=== PATIENT | female | born 1990 | race African-American/Black ===

== ENCOUNTER 2016-11-17 22:32 | Emergency (ER) | payer SELFPAY ==
[2016-11-17] MEDS ORDERED: MAG HYDROX/AL HYDROX/SIMETH SUSP 30 ML UDCUP PO ONE (23:39)
[2016-11-17] MEDS ORDERED: METOCLOPRAMIDE HCL ORAL SOLN 10 MG/10 ML UDCUP PO ONE (23:39)
[2016-11-17] MEDS ORDERED: LIDOCAINE 2% VISCOUS SOLN 20 ML UDCUP PO ONE (23:39)
--- NOTE | 2016-11-17 23:43 | ER Document Report ---
ED Medical Screen (RME) - General Stated Complaint: CHEST PAIN Notes: 26-year-old female, chief complaint of burning pain in her chest since earlier today, no history of reflux, no injury, denies shortness of breath, pain is in the middle of her chest. Smokes, hx PCOS, denies other hx. no family history of early cardiac disease. No recent travel, no leg swelling, no control use , no family history of blood clots. TRAVEL OUTSIDE OF THE [place] IN LAST 30 DAYS: No - Related Data Allergies/Adverse Reactions: No Known Allergies Allergy (Verified 08/27/13 13:35) Past Medical History - Social History Chew tobacco use (# tins/day): No Frequency of alcohol use: Social Drug Abuse: None Pulmonary Medical History: Reports: Hx Pneumonia Denies: Hx Asthma Endocrine Medical History: Denies: Hx Diabetes Mellitus Type 1 Renal/ Medical History: Denies: Hx Peritoneal Dialysis - Immunizations Hx Diphtheria, Pertussis, Tetanus Vaccination: Yes Physical Exam - Vital signs Vitals: Temp Pulse Resp BP Pulse Ox 98.1 F 106 H 22 H 153/99 H 100 11/17/16 23:23 11/17/16 23:23 11/17/16 23:23 11/17/16 23:23 11/17/16 23:23 - General General appearance: Appears well In distress: None - Cardiovascular Rhythm: Regular. No: Tachycardia Heart sounds: Normal auscultation, S1 appreciated, S2 appreciated Course - Vital Signs Vital signs: Temp Pulse Resp BP Pulse Ox 98.1 F 106 H 22 H 153/99 H 100 11/17/16 23:23 11/17/16 23:23 11/17/16 23:23 11/17/16 23:23 11/17/16 23:23
[2016-11-18 02:26] VITALS: BP 134/79
--- NOTE | 2016-11-18 03:00 | ER Document Report ---
ED General - General Chief Complaint: Chest Pain Stated Complaint: CHEST PAIN Notes: Patient is a 26-year-old female that comes emergency department with chief complaint of burning pain in her chest since earlier today, no history of reflux , no injury, denies shortness of breath, pain is in the middle of her chest. Smokes, hx PCOS, denies other hx. no family history of cardiac disease. No recent travel, no leg swelling, no control use, no family history of blood clots. TRAVEL OUTSIDE OF THE [place] IN LAST 30 DAYS: No - Related Data Allergies/Adverse Reactions: No Known Allergies Allergy (Verified 08/27/13 13:35) Past Medical History - General Information source: Patient - Social History Smoking Status: Current Every Day Smoker Chew tobacco use (# tins/day): No Smoking Education Provided: Yes - <3 min Frequency of alcohol use: Social Drug Abuse: None Lives with: Family Family History: None Patient has suicidal ideation: No Patient has homicidal ideation: No Pulmonary Medical History: Reports: Hx Pneumonia Denies: Hx Asthma Endocrine Medical History: Denies: Hx Diabetes Mellitus Type 1 Renal/ Medical History: Denies: Hx Peritoneal Dialysis Surgical Hx: Negative - Immunizations Hx Diphtheria, Pertussis, Tetanus Vaccination: Yes Review of Systems - Review of Systems Constitutional: No symptoms reported EENT: No symptoms reported Cardiovascular: See HPI Respiratory: See HPI Gastrointestinal: See HPI Genitourinary: No symptoms reported Female Genitourinary: No symptoms reported Musculoskeletal: No symptoms reported Skin: No symptoms reported Hematologic/Lymphatic: No symptoms reported Neurological/Psychological: No symptoms reported Physical Exam - Vital signs Vitals: Temp Pulse Resp BP Pulse Ox 98.1 F 106 H 22 H 153/99 H 100 11/17/16 23:23 11/17/16 23:23 11/17/16 23:23 11/17/16 23:23 11/17/16 23:23 Interpretation: Normal - General General appearance: Alert, Anxious In distress: None - Patient appears nervous but does not appear to be in distress - HEENT Head: Normocephalic, Atraumatic Eyes: Normal Conjunctiva: Normal Extraocular movements intact: Yes Eyelashes: Normal Pupils: PERRL Mucous membranes: Normal Pharynx: Normal Neck: Normal - Respiratory Respiratory status: No respiratory distress Chest status: Nontender Breath sounds: Normal. No: Decreased air movement, Wheezing Chest palpation: Normal - Cardiovascular Rhythm: Regular. No: Tachycardia Heart sounds: Normal auscultation, S1 appreciated, S2 appreciated Murmur: No - Abdominal Inspection: Normal Distension: No distension Bowel sounds: Normal Tenderness: Tender - Patient has mild tenderness in the epigastric area, no guarding, otherwise soft abdomen Organomegaly: No organomegaly - Back Back: Normal, Nontender - Extremities General upper extremity: Normal inspection, Nontender, Normal color, Normal ROM , Normal temperature General lower extremity: Normal inspection, Nontender, Normal color, Normal ROM , Normal temperature, Normal weight bearing. No: Melba's sign - Neurological Neuro grossly intact: Yes Cognition: Normal Orientation: AAOx4 Cicero Coma Scale Eye Opening: Spontaneous Darlin Coma Scale Verbal: Oriented Cicero Coma Scale Motor: Obeys Commands Darlin Coma Scale Total: 15 Speech: Normal Motor strength normal: LUE, RUE, LLE, RLE Sensory: Normal - Psychological Associated symptoms: Normal affect, Normal mood - Skin Skin Temperature: Warm Skin Moisture: Dry Skin Color: Normal Course - Re-evaluation Re-evalutation: Chest x-ray is unremarkable, EKG shows T-wave inversion in lead III, no significant T-waves or ST segment changes. On re-evaluation after GI cocktail patient smiling and states she feels much better, discomfort is gone. Patient still has very mild epigastric tenderness on examination, no significant tenderness or guarding. She tells me that her "heartburn is gone". I did not tell her she had heartburn. Patient with no concerning medical history including diabetes, hypertension, hyperlipidemia. She is obese, however she has no family history of cardiac disease and she is young at the age of 26. Symptoms described as burning and resolved with GI cocktail. Discussed with Dr. Duong, recommendation is for patient to be treated for GERD, follow-up with primary care, and return if she worsens in any way. Patient states satisfaction and agreement with plan. - Vital Signs Vital signs: Temp Pulse Resp BP Pulse Ox 98.1 F 93 19 134/79 H 97 11/17/16 23:23 11/18/16 02:23 11/18/16 02:23 11/18/16 02:23 11/18/16 02:23 Discharge - Discharge Clinical Impression: Chest pain Qualifiers: Chest pain type: unspecified Qualified Code(s): R07.9 - Chest pain, unspecified Condition: Stable Disposition: HOME, SELF-CARE Additional Instructions: Workup and examination indicates a gastrointestinal source of your symptoms. Please take the Prilosec daily as directed, take Tums or Rolaids in addition to this if needed, avoid NSAIDs such as ibuprofen, naproxen, aspirin, avoid high levels of caffeine, avoid smoking or drinking. Follow-up with primary care closely for additional workup and evaluation. Return to emergency department for any concerning or worsening symptoms including returned or worsening pain, shortness of breath, vomiting, etc. Prescriptions: Omeprazole 40 mg PO DAILY #30 capsule.dr Forms: Return to Work
--- NOTE | 2016-11-18 08:22 | EKG REPORT ---
SEVERITY:- ABNORMAL ECG - SINUS RHYTHM NONSPECIFIC T ABNORMALITIES, INFEROLAT LEADS : Confirmed by: Stuart Busch MD 18-Nov-2016 08:21:33
== END 2016-11-18 03:14 | disposition home or self-care (01) ==
LOC: ER 22:32
DX: R07.9 Chest pain, unspecified (principal); F17.200 Nicotine dependence, unspecified, uncomplicated; Z71.6 Tobacco abuse counseling; R10.816 Epigastric abdominal tenderness; E66.9 Obesity, unspecified; Z68.41 Body mass index [BMI] 40.0-44.9, adult
CPT/HCPCS: 93005; 99285; 71020; 93010; J3490

== ENCOUNTER 2017-11-04 09:26 | Emergency (ER) | payer SELFPAY ==
[2017-11-04] MEDS ORDERED: POLYETHYLENE GLYCOL 3350 POWDER 17 GM/1 PACKET PO ONE (10:17)
[2017-11-04] MEDS ORDERED: DOCUSATE SODIUM 100 MG CAPSULE PO ONE (10:17)
--- NOTE | 2017-11-04 10:22 | ER Document Report ---
ED GI Bleed / Rectal Pain - General Chief Complaint: Hemorrhoids Stated Complaint: Hemorrhoid Time Seen by Provider: 11/04/17 10:17 Mode of Arrival: Ambulatory Information source: Patient Notes: Patient is a 27-year-old female who presents to the ER today for a bump between her vagina and her rectum 6 days. Patient states that she has been constipated for about a week and has been trying to have a bowel movement by straining but is unable to have a bowel movement. Patient states that she has no history of hemorrhoids but looked in the mirror and thinks that she does have one. She states it is very tender. She denies any drainage, bleeding TRAVEL OUTSIDE OF THE [place] IN LAST 30 DAYS: No - Related Data Allergies/Adverse Reactions: No Known Allergies Allergy (Verified 08/27/13 13:35) Past Medical History - General Information source: Patient - Social History Smoking Status: Unknown if Ever Smoked Family History: None Pulmonary Medical History: Reports: Hx Pneumonia Denies: Hx Asthma Endocrine Medical History: Denies: Hx Diabetes Mellitus Type 1 Renal/ Medical History: Denies: Hx Peritoneal Dialysis - Immunizations Hx Diphtheria, Pertussis, Tetanus Vaccination: Yes Review of Systems - Review of Systems Constitutional: No symptoms reported EENT: No symptoms reported Cardiovascular: No symptoms reported Respiratory: No symptoms reported Gastrointestinal: See HPI Genitourinary: No symptoms reported Female Genitourinary: No symptoms reported Musculoskeletal: No symptoms reported Skin: See HPI Hematologic/Lymphatic: No symptoms reported Neurological/Psychological: No symptoms reported Physical Exam - Vital signs Vitals: Temp Pulse Resp BP Pulse Ox 98.4 F 84 14 128/60 H 96 11/04/17 09:34 11/04/17 09:34 11/04/17 09:34 11/04/17 09:34 11/04/17 09:34 - Notes Notes: PHYSICAL EXAMINATION: GENERAL: Well-appearing and in no acute distress. HEAD: Atraumatic, normocephalic. EYES: Pupils equal round and reactive to light, extraocular movements intact, sclera anicteric, conjunctiva are normal. NECK: Normal range of motion, supple without lymphadenopathy LUNGS: CTAB and equal. No wheezes rales or rhonchi. HEART: Regular rate and rhythm without murmurs ABDOMEN: Soft, no tenderness. No guarding, no rebound rectal: normal tone, 1cm in length external hemorrhoid, fleshy colored, no bleeding or erythema, drainage, tender to palpation EXTREMITIES: Normal range of motion, no pitting edema. No cyanosis. NEUROLOGICAL: Cranial nerves grossly intact. Normal sensory/motor exams. PSYCH: Normal mood, normal affect. SKIN: Warm, Dry, normal turgor, no rashes or lesions noted Course - Re-evaluation Re-evalutation: 11/04/17 10:21 pt will be treated for external hemorrhoid with hydrocortisone topical and suppositories, stool softeners and miralax. - Vital Signs Vital signs: Temp Pulse Resp BP Pulse Ox 98.4 F 84 14 128/60 H 96 11/04/17 09:34 11/04/17 09:34 11/04/17 09:34 11/04/17 09:34 11/04/17 09:34 Discharge - Discharge Clinical Impression: External hemorrhoid Constipation Qualifiers: Constipation type: unspecified constipation type Qualified Code(s): K59.00 - Constipation, unspecified Condition: Stable Disposition: HOME, SELF-CARE Additional Instructions: Return immediately for any new or worsening symptoms. Follow up with primary care provider, call tomorrow to make followup appointment. Prescriptions: Docusate Sodium 100 mg PO DAILY #30 capsule Hydrocortisone Acetate 25 mg RC BID #28 supp.rect Hydrocortisone Acetate 28.4 gm TP BID #2 cream..g. Polyethylene Glycol 3350 [Miralax] 17 gm PO DAILY #1 powder
[2017-11-04 11:19] VITALS: BP 119/70
== END 2017-11-04 11:24 | disposition home or self-care (01) ==
LOC: ER 09:26
DX: K64.4 Residual hemorrhoidal skin tags (principal); K59.00 Constipation, unspecified
CPT/HCPCS: 99282; J3490

== ENCOUNTER 2017-11-19 02:24 | Emergency (ER) | payer SELFPAY ==
[2017-11-19] MEDS ORDERED: LIDOCAINE 2% VISCOUS SOLN 20 ML UDCUP PO ONE (03:39)
[2017-11-19] MEDS ORDERED: MAG HYDROX/AL HYDROX/SIMETH SUSP 30 ML UDCUP PO ONE (03:39)
[2017-11-19] MEDS ORDERED: METOCLOPRAMIDE HCL ORAL SOLN 10 MG/10 ML UDCUP PO ONE (03:39)
--- NOTE | 2017-11-19 03:44 | ER Document Report ---
HPI - HPI Pain Level: 2 Notes: Patient is a 27-year-old female with no significant past medical history who presents to the ED complaining of being woken up to the mild burning sensation in her chest this evening. Patient states that after she woke up she started having mild panic attack. Patient states that her symptoms have since greatly improved and she just has a very mild burning sensation left. Patient states that the discomfort does not radiate. Patient states that she has been eating and drinking without difficulties otherwise. She is urinating normally. Patient states that she can ambulate without any dyspnea on exertion or worsening pains. Patient states that she was seen about a year ago with a similar presentation. Patient denies any prolonged immobilization, distance travel, hormone replacement, cancer, diabetes, previous DVT/PE. Patient does admit to smoking. Denies any drug allergies. No other concerns or complaints at this time. Denies any headache, fever, neck pain, URI, sore throat, palpitations, syncope, cough, shortness of breath, wheeze, dyspnea, abdominal pain, nausea/vomiting/diarrhea, urinary retention, dysuria, hematuria, back pain , loss of control of bowel or bladder, numbness/tingling, muscle paralysis/ weakness, or rash. - ROS Systems Reviewed and Negative: Yes All other systems reviewed and negative - REPRODUCTIVE Reproductive: DENIES: : Past Medical History - Social History Smoking Status: Current Every Day Smoker Family History: None Pulmonary Medical History: Reports: Hx Pneumonia Denies: Hx Asthma Endocrine Medical History: Denies: Hx Diabetes Mellitus Type 1 Renal/ Medical History: Denies: Hx Peritoneal Dialysis - Immunizations Hx Diphtheria, Pertussis, Tetanus Vaccination: Yes Vertical Provider Document - CONSTITUTIONAL Agree With Documented VS: Yes Notes: PHYSICAL EXAMINATION: GENERAL: Well-appearing, well-nourished and in no acute distress. HEAD: Atraumatic, normocephalic. EYES: Pupils equal round and reactive to light, extraocular movements intact, sclera anicteric, conjunctiva are normal. ENT: Nares patent and without discharge. oropharynx clear without exudates. No tonsilar hypertrophy or erythema. Moist mucous membranes. NECK: Normal range of motion, supple without lymphadenopathy Chest: non-tender. + equal rise/fall. No flail chest. LUNGS: Breath sounds clear to auscultation bilaterally and equal. No wheezes rales or rhonchi. HEART: Regular rate and rhythm without murmurs, rubs, gallops. ABDOMEN: Soft, nontender, nondistended abdomen. No guarding, no rebound. No masses appreciated. Normal bowel sounds present. No CVA tenderness bilaterally. Musculoskeletal: FROM to passive/active. Strength 5+/5. Melba neg b/l. No calf erythema/swelling. Extremities: No cyanosis, clubbing, or edema b/l. Peripheral pulses 2+. Capillary refill less than 3 seconds. NEUROLOGICAL: Normal speech, normal gait. Normal sensory, motor exams PSYCH: Normal mood, normal affect. SKIN: Warm, Dry, normal turgor, no rashes or lesions noted. - INFECTION CONTROL TRAVEL OUTSIDE OF THE [place] IN LAST 30 DAYS: No - RESPIRATORY O2 Sat by Pulse Oximetry: 97 Course - Re-evaluation Re-evalutation: 11/19/17 05:07 Pt declined chest XR with risks/benefits understood. Patient is an afebrile, well-hydrated, 27-year-old female who presents to the ED with suspected gastritis based on H&P today. Vitals are stable. PE is otherwise unremarkable. As noted above, patient declined chest x-ray. EKG was unremarkable for any acute pathology. GI cocktail was given and completely resolved patient's symptoms. Patient states she feels much better is ready to go home. Patient is tolerating p.o. without any difficulties. Even though a chest x-ray was not completed, I have a low suspicion for any ACS, PE, pneumothorax, pericarditis, dissection, respiratory compromise, severe dehydration, sepsis, meningitis, or other systemic emergent condition at this time. Patient is aware that her condition can change from initial presentation and she needs to monitor symptoms closely and seek medical attention for any acute changes. I will send her home with a prescription for omeprazole and Carafate. Recommend conservative measures for symptoms. Recheck with your PCM in 3-5 days. Consider consult with gastroenterology. Return to the ED with any worsening/concerning symptoms otherwise as reviewed in discharge. Patient is in agreement. - Vital Signs Vital signs: Temp Pulse Resp BP Pulse Ox 98.0 F 86 16 142/72 H 97 11/19/17 02:28 11/19/17 02:28 11/19/17 02:28 11/19/17 02:28 11/19/17 02:28 Discharge - Discharge Clinical Impression: Gastritis Qualifiers: Gastritis type: unspecified gastritis Chronicity: acute Gastritis bleeding: presence of bleeding unspecified Qualified Code(s): K29.00 - Acute gastritis without bleeding Condition: Stable Disposition: HOME, SELF-CARE Instructions: Antacid Therapy ([facility]), Chest Pain of Unclear Cause ([facility]), Reflux Disease (GERD) ([facility]) Additional Instructions: Maintain adequate fluid and food intake healthy diet, avoid spices/caffeine/citrus tylenol if needed Monitor for any worsening symptoms Make sure you are staying hydrated enough to urinate and have normal BM's Recheck with your PCM in 3-5 days Consider consult with Gastroenterology for ongoing/worsening symptoms Return to the ED with any worsening symptoms and/or development of fever, headache, chest pain, palpitations, syncope, shortness of breath, trouble breathing, abdominal pain, n/v/d, blood in stool/urine, weakness, or other worsening symptoms that are concerning to you. Prescriptions: Omeprazole 20 mg PO DAILY #30 tablet. Sucralfate [Carafate] 1 gm PO QID PRN #420 ml PRN Reason: Forms: Elevated Blood Pressure Referrals: FABIAN GEORGE MD [ACTIVE STAFF] - Follow up as needed LUZ SHIELDS MD [ACTIVE STAFF] - Follow up as needed
[2017-11-19 05:22] VITALS: BP 138/70
--- NOTE | 2017-11-19 06:41 | EKG REPORT ---
SEVERITY:- ABNORMAL ECG - SINUS RHYTHM PROBABLE LEFT ATRIAL ABNORMALITY NONSPECIFIC T ABNORMALITIES, DIFFUSE LEADS : Confirmed by: Stuart Busch MD 19-Nov-2017 06:41:04
== END 2017-11-19 05:22 | disposition home or self-care (01) ==
LOC: ER 02:24
DX: K29.00 Acute gastritis without bleeding (principal); R07.9 Chest pain, unspecified; F41.0 Panic disorder [episodic paroxysmal anxiety]; F17.200 Nicotine dependence, unspecified, uncomplicated
CPT/HCPCS: 93005; 99285; 93010; J3490

== ENCOUNTER 2018-11-08 00:42 | Emergency (ER) | payer SELFPAY ==
[2018-11-08] MEDS ORDERED: ACETAMINOPHEN 325 MG TABLET PO ONE (02:14)
[2018-11-08] MEDS ORDERED: CEPHALEXIN 500 MG CAPSULE PO ONE (03:19)
[2018-11-08] MEDS ORDERED: DEXAMETHASONE 4 MG TABLET PO ONE (03:20)
--- NOTE | 2018-11-08 03:33 | ER Document Report ---
HPI - HPI Patient complains to provider of: sore throat Time Seen by Provider: 11/08/18 02:14 Pain Level: 3 Context: Patient is a 28-year-old female presents to the emergency department for generalized cough, congestion, body aches, sore throat for the last 24 hours. Patient states she also feels as though she may have gotten bitten by something on the left hand. States she has noticed some swelling and some erythema. Patient's denying any fevers. Chest pain, shortness of breath, abdominal pain, dysuria. Past medical history: None Medications: None Allergies: None Last menstrual period 10/30/2018. - CONSTITUTIONAL Constitutional: DENIES: Fever, Chills - REPRODUCTIVE Reproductive: DENIES: : Past Medical History - General Information source: Patient - Social History Smoking Status: Current Every Day Smoker Family History: None Patient has suicidal ideation: No Patient has homicidal ideation: No Pulmonary Medical History: Reports: Hx Pneumonia Denies: Hx Asthma Endocrine Medical History: Denies: Hx Diabetes Mellitus Type 1 Renal/ Medical History: Denies: Hx Peritoneal Dialysis - Immunizations Hx Diphtheria, Pertussis, Tetanus Vaccination: Yes Vertical Provider Document - CONSTITUTIONAL Agree With Documented VS: Yes Notes: GENERAL: Alert, interacts well. No acute distress. HEAD: Normocephalic, atraumatic. EYES: Pupils equal, round, and reactive to light. Extraocular movements intact. ENT: Oral mucosa moist, tongue midline. Nares patent, TM's intact, nonerythematous, nonbulging bilaterally. Pharynx erythematous with no palatal petechiae or exudate noted tonsils +2 bilaterally NECK: Full range of motion. Supple. Trachea midline. No lymphadenopathy appreciated LUNGS: Clear to auscultation bilaterally, no wheezes, rales, or rhonchi. No resp iratory distress. HEART: Regular rate and rhythm. No murmur ABDOMEN: Soft, non-tender. Non-distended. Bowel sounds present in all 4 quadrants. EXTREMITIES: Moves all 4 extremities spontaneously. normal radial and dorsalis pedis pulses bilaterally. No cyanosis. BACK: no cervical, thoracic, lumbar midline tenderness. No saddle anesthesia, normal distal neurovascular exam. NEUROLOGICAL: Alert and oriented x3. Normal speech. cranial nerves II through XII grossly intact. PSYCH: Normal affect, normal mood. SKIN: Warm, dry, normal turgor. Swelling noted to posterior aspect of patient's left hand, with 2 pinpoint areas of erythema noted. - INFECTION CONTROL TRAVEL OUTSIDE OF THE [place] IN LAST 30 DAYS: No Course - Re-evaluation Re-evalutation: 11/08/18 03:30 Discussed with patient I will treat her for a superficial skin infection of the left hand. Discussed her rapid strep test was negative, discussed symptomatic treatment at home. Discussed patient's hypertension with her in the emergency room. Patient states she does not have insurance, discussed [facility]. Patient voices understanding and is stable for discharge. - Vital Signs Vital signs: Temp Pulse Resp BP Pulse Ox 98.9 F 101 H 18 180/86 H 95 11/08/18 00:49 11/08/18 00:49 11/08/18 00:49 11/08/18 00:49 11/08/18 00:49 Discharge - Discharge Clinical Impression: Pharyngitis Qualifiers: Pharyngitis/tonsillitis etiology: unspecified etiology Qualified Code(s): J02.9 - Acute pharyngitis, unspecified Cellulitis Qualifiers: Site of cellulitis: extremity Site of cellulitis of extremity: upper extremity Laterality: left Qualified Code(s): L03.114 - Cellulitis of left upper limb Condition: Stable Disposition: HOME, SELF-CARE Instructions: Sore Throat ([facility]), Cephalexin ([facility]), Cellulitis ([facility]) Additional Instructions: As we discussed you have been seen and treated in the emergency department for a sore throat. Your rapid strep test came back negative for bacteria. Please make sure you continue to treat symptomatically with [id number] Tylenol and Motrin, salt water gargles, lozenges and honey. These may she take antibiotics for the swelling and erythema noted to your left hand. Please return to the emergency room for any other concerning symptoms. Also as we discussed your blood pressure readings are elevated today. Please make sure you follow-up with [facility] phone numbers will be provided in this packet. Prescriptions: Cephalexin Monohydrate [Keflex 500 mg Capsule] 500 mg PO BID 7 Days #14 capsule Forms: Elevated Blood Pressure Referrals: [facility] [Provider Group] - Follow up as needed
[2018-11-08 04:06] VITALS: BP 157/87
== END 2018-11-08 04:05 | disposition home or self-care (01) ==
LOC: ER 00:42
DX: J02.9 Acute pharyngitis, unspecified (principal); L03.114 Cellulitis of left upper limb; R05 Cough; M79.10 Myalgia, unspecified site; F17.200 Nicotine dependence, unspecified, uncomplicated
CPT/HCPCS: 87070; 87077; 87880; 99283

== ENCOUNTER 2019-05-07 14:29 | Inpatient (IN) | payer SELFPAY ==
[2019-05-07] MEDS ORDERED: ACETAMINOPHEN 325 MG TABLET PO ONE (15:31)
[2019-05-07] MEDS ORDERED: NORMAL SALINE 1000 ML 1,000 ML IV ONE (15:32)
--- NOTE | 2019-05-07 15:38 | ER Document Report ---
ED Medical Screen (RME) - General Chief Complaint: Headache Stated Complaint: HEADACHE,COUGH Time Seen by Provider: 05/07/19 15:24 Notes: Patient is a 28-year-old female presents to the emergency department with a chief complaint of fever. Patient states last she began feeling generally weak and having body aches. Patient reports a productive cough with brown sputum. Patient reports she has had some shortness of breath. Patient states she has a decreased appetite but has been drinking Pedialyte and water. Patient denies nausea, vomiting. Patient states she has had diarrhea for the past 24 hours and states she is gone greater than 10 times. Patient reports a pressure to her head but denies neck pain. TRAVEL OUTSIDE OF THE [place] IN LAST 30 DAYS: No - Related Data Allergies/Adverse Reactions: No Known Allergies Allergy (Verified 05/07/19 14:30) Past Medical History Pulmonary Medical History: Reports: Hx Pneumonia Denies: Hx Asthma Endocrine Medical History: Denies: Hx Diabetes Mellitus Type 1 Renal/ Medical History: Denies: Hx Peritoneal Dialysis - Immunizations Hx Diphtheria, Pertussis, Tetanus Vaccination: Yes Physical Exam - Vital signs Vitals: Temp Pulse Resp BP Pulse Ox 103.8 F H 130 H 18 156/89 H 94 05/07/19 14:35 05/07/19 14:35 05/07/19 14:35 05/07/19 14:35 05/07/19 14:35 Interpretation: Hypertensive, Tachycardic, Febrile - HEENT Notes: No nuchal rigidity. - Respiratory Respiratory status: No respiratory distress Chest status: Nontender, Accessory muscle use Chest palpation: Normal - Cardiovascular Rhythm: Regular Heart sounds: Normal auscultation, S1 appreciated, S2 appreciated - Abdominal Inspection: Normal Distension: No distension Bowel sounds: Normal Tenderness: Nontender Organomegaly: No organomegaly Course - Re-evaluation Re-evalutation: 05/07/19 15:36 I have greeted and performed a rapid initial assessment of this patient. A comprehensive ED assessment and evaluation of the patient, analysis of test results and completion of the medical decision making process will be conducted by additional ED providers. - Vital Signs Vital signs: Temp Pulse Resp BP Pulse Ox 103.8 F H 130 H 18 156/89 H 94 05/07/19 14:35 05/07/19 14:35 05/07/19 14:35 05/07/19 14:35 05/07/19 14:35
[2019-05-07 16:27] LABS: ABSOLUTE BASOPHILS # (AUTO) 0.1 10^3/uL (0.0-0.2); ABSOLUTE LYMPHOCYTES (AUTO) 1.9 10^3/uL (0.5-4.7); ABSOLUTE MONOCYTES (AUTO) 0.8 10^3/uL (0.1-1.4); ABSOLUTE NEUT (AUTO) 9.1 10^3/uL (1.7-8.2); BASOPHILS % (AUTO) 0.7 % (0-2); HEMATOCRIT 37.7 % (36.0-47.0); HEMOGLOBIN 12.2 g/dL (12.0-15.5); LYMPHOCYTES % (AUTO) 16.1 % (13-45); MEAN CORPUSCULAR HEMOGLOBIN 23.5 pg (27.0-33.4); MEAN CORPUSCULAR HGB CONC 32.5 g/dL (32.0-36.0); MEAN CORPUSCULAR VOLUME 72 fl (80-97); MONOCYTES % (AUTO) 6.7 % (3-13); PLATELET COUNT 263 10^3/uL (150-450); RED BLOOD COUNT 5.21 10^6/uL (3.72-5.28); RED CELL DISTRIBUTION WIDTH 14.5 % (11.5-14.0); SEGMENTED NEUTROPHILS % (AUTO) 76.5 % (42-78); TOTAL CELLS COUNTED % (AUTO) 100 %; WHITE BLOOD COUNT 11.9 10^3/uL (4.0-10.5)
--- NOTE | 2019-05-07 16:41 | RADIOLOGY REPORT (SQ) ---
EXAM DESCRIPTION: CHEST 2 VIEWS COMPLETED DATE/TIME: 05/07/2019 4:24 pm REASON FOR STUDY: productive cough, fever COMPARISON: 11/18/2016 TECHNIQUE: Frontal and lateral radiographic views of the chest acquired. NUMBER OF VIEWS: Two view. LIMITATIONS: None. FINDINGS: LUNGS AND PLEURA: No pneumothorax. Left upper lobe consolidation. No pleural effusion. MEDIASTINUM AND HILAR STRUCTURES: Stable. HEART AND VASCULAR STRUCTURES: Stable. BONES: No acute findings. HARDWARE: None in the chest. OTHER: No other significant finding. IMPRESSION: Left upper lobe consolidation. No pleural effusion. TECHNICAL DOCUMENTATION: JOB ID: [id number] [id number] 2010 [employer]- All Rights Reserved Reading location - IP/workstation name: [email or web address]
[2019-05-07 16:49] LABS: ALBUMIN 4.7 g/dL (3.5-5.0); ALKALINE PHOSPHATASE 70 U/L (38-126); ANION GAP 11 (5-19); ASPARTATE AMINO TRANSFERASE 57 U/L (14-36); BILIRUBIN,DIRECT 0.4 mg/dL (0.0-0.4); BILIRUBIN,TOTAL 1.6 mg/dL (0.2-1.3); BLOOD UREA NITROGEN 8 mg/dL (7-20); CALCIUM 9.4 mg/dL (8.4-10.2); CARBON DIOXIDE 24 mmol/L (22-30); CHLORIDE 101 mmol/L (98-107); GLUCOSE 101 mg/dL (75-110); POTASSIUM 3.5 mmol/L (3.6-5.0); TOTAL PROTEIN 8.4 g/dL (6.3-8.2)
[2019-05-07] MEDS ORDERED: RINGERS SOLUTION,LACTATED 1,000 ML IV ONE ×2 (16:59→20:34)
[2019-05-07] MEDS ORDERED: IPRATROPIUM/ALBUTEROL 0.5-2.5 MG/3 ML AMPUL NEB ONE (17:27)
[2019-05-07] MEDS ORDERED: AZITHROMYCIN INJ 500 MG VIAL IV ONE (17:28)
[2019-05-07] MEDS ORDERED: CEFTRIAXONE 1 GM/D5W RTU 1 GM/50 ML RTUPB IV ONE (17:28)
--- NOTE | 2019-05-07 18:16 | ER Document Report ---
ED General - General Chief Complaint: Headache Stated Complaint: HEADACHE,COUGH Time Seen by Provider: 05/07/19 15:24 Notes: Patient is a 28-year-old female that presents to the emergency department for chief complaint of fever, cough and diarrhea. Patient reports she started having shortness of breath and cough with productive brown sputum on , and is progressed over the weekend and not improved. She started having watery diarrhea on Wednesday as well. She denies any recent travel outside the country, no sick contacts that she is aware of. She denies having any nausea, vomiting or abdominal pain associated with this. She denies having any chest pain. Denies prior history of diabetes, asthma or other chronic medical conditions. Overall she states she is just been feeling not well, and has had decreased energy associated with these other symptoms. Past Medical History: Denies chronic medical conditions Past Surgical History: Denies surgical history Social History: Denies tobacco, alcohol or drug use. Family History: Reviewed and noncontributory for presenting illness Allergies: Reviewed, see documented allergy list. REVIEW OF SYSTEMS: Other than noted above, the 12 point review of systems was reviewed with the patient and were negative, all pertinent findings are included in the HPI. PHYSICAL EXAMINATION: Vital signs reviewed, nursing noted reviewed. GENERAL: Obese female, appears uncomfortable on exam, but in no acute distress HEAD: Atraumatic, normocephalic. EYES: Eyes appear normal, extraocular movements intact, sclera anicteric, conjunctiva are normal. ENT: nares patent, oropharynx clear without exudates. Moist mucous membranes. NECK: Normal range of motion, supple without lymphadenopathy LUNGS: Expiratory wheezing noted bilaterally, but worse in the left compared to the right. No acute respiratory distress. HEART: Heart rate tachycardic on exam, regular rhythm, no audible murmur ABDOMEN: Soft, obese, nontender, normoactive bowel sounds. No rebound, guarding, or rigidity. No masses appreciated. EXTREMITIES: Nontender, good range of motion, no pitting or edema. NEUROLOGICAL: No focal neurological deficits. Moves all extremities spontaneously Motor and sensory grossly intact on exam. PSYCH: Normal mood, normal affect. SKIN: Warm, Dry, normal turgor, no rashes or lesions noted on exposed skin TRAVEL OUTSIDE OF THE [place] IN LAST 30 DAYS: No - Related Data Allergies/Adverse Reactions: No Known Allergies Allergy (Verified 05/07/19 14:30) Past Medical History - Social History Smoking Status: Current Every Day Smoker Frequency of alcohol use: Social Drug Abuse: None Family History: None Patient has suicidal ideation: No Patient has homicidal ideation: No Pulmonary Medical History: Reports: Hx Pneumonia Denies: Hx Asthma Endocrine Medical History: Denies: Hx Diabetes Mellitus Type 1 Renal/ Medical History: Denies: Hx Peritoneal Dialysis - Immunizations Hx Diphtheria, Pertussis, Tetanus Vaccination: Yes Physical Exam - Vital signs Vitals: Temp Pulse Resp BP Pulse Ox 103.8 F H 130 H 18 156/89 H 94 05/07/19 14:35 05/07/19 14:35 05/07/19 14:35 05/07/19 14:35 05/07/19 14:35 Course - Re-evaluation Re-evalutation: Patient seen and examined vital signs reviewed. Laboratory data and imaging were ordered as appropriate for the patient's presenting symptoms and complaint, with consideration of any critical or life threatening conditions that may be associated with their obtained history and exam as noted above. Patient was noted to be tachycardic, febrile on initial exam, but not hypotensive. Patient was treated with IV fluid bolusing, and started on IV antibiotics with Rocephin and azithromycin. She is also given DuoNeb breathing treatments Results were reviewed when available and demonstrated left upper lobe pneumonia on chest x-ray, leukocytosis The patient was re-evaluated and was improved, but was still short of breath, and felt uncomfortable after being ambulated, she was still rather tachycardic, she was given additional IV fluids, and will plan for admission to the hospital. Evaluation was most consistent with sepsis, community-acquired pneumonia Results were discussed with the patient at this point after careful consideration I feel that that patient should be admitted to the hospital. This was discussed with the patient that it is in the best interest for their care to be admitted for further evaluation and management. Patient agreed with this plan of care. A call was placed to the admitting physician, Dr. Kingston who graciously accepted the patient onto their service. *Note is created using voice recognition software and may contain spelling, syntax or grammatical errors. Laboratory 05/07/19 05/07/19 05/07/19 16:14 16:14 16:14 WBC 11.9 H RBC 5.21 Hgb 12.2 Hct 37.7 MCV 72 L MCH 23.5 L MCHC 32.5 RDW 14.5 H Plt Count 263 Seg Neutrophils % 76.5 Lymphocytes % 16.1 Monocytes % 6.7 Eosinophils % 0.0 Basophils % 0.7 Absolute Neutrophils 9.1 H Absolute Lymphocytes 1.9 Absolute Monocytes 0.8 Absolute Eosinophils 0.0 Absolute Basophils 0.1 Sodium 135.9 L Potassium 3.5 L Chloride 101 Carbon Dioxide 24 Anion Gap 11 BUN 8 Creatinine 0.92 Est GFR ( Amer) > 60 Est GFR (Non-Af Amer) > 60 Glucose 101 Lactic Acid 0.9 Calcium 9.4 Total Bilirubin 1.6 H Direct Bilirubin 0.4 Neonat Total Bilirubin Not Reportable Neonat Direct Bilirubin Not Reportable Neonat Indirect Bili Not Reportable AST 57 H ALT 46 Alkaline Phosphatase 70 Total Protein 8.4 H Albumin 4.7 Chest X-Ray 05/07/19 15:36 IMPRESSION: Left upper lobe consolidation. No pleural effusion. - Vital Signs Vital signs: Temp Pulse Resp BP Pulse Ox 99.8 F 115 H 20 150/81 H 93 05/07/19 20:11 05/07/19 20:11 05/07/19 20:11 05/07/19 20:11 05/07/19 20:11 - Laboratory Result Diagrams: 05/07/19 16:14 05/07/19 16:14 Laboratory results interpreted by me: 05/07/19 05/07/19 16:14 16:14 WBC 11.9 H MCV 72 L MCH 23.5 L RDW 14.5 H Absolute Neutrophils 9.1 H Sodium 135.9 L Potassium 3.5 L Total Bilirubin 1.6 H AST 57 H Total Protein 8.4 H Discharge - Discharge Clinical Impression: Community acquired pneumonia Qualifiers: Laterality: left Lung location: upper lobe of lung Qualified Code(s): J18.1 - Lobar pneumonia, unspecified organism Sepsis Qualifiers: Sepsis type: sepsis due to unspecified organism Sepsis acute organ dysfunction status: without acute organ dysfunction Qualified Code(s): A41.9 - Sepsis, unspecified organism Condition: Stable Disposition: ADMITTED INPATIENT Admitting Provider: Thee (Hospitalist) Unit Admitted: Telemetry
[2019-05-07] MEDS ORDERED: NORMAL SALINE 1000 ML 1,000 ML IV PRN (20:44)
[2019-05-07] MEDS ORDERED: IPRATROPIUM/ALBUTEROL 0.5-2.5 MG/3 ML AMPUL NEB PRN (20:50)
[2019-05-07] MEDS ORDERED: GUAIFENESIN 600 MG TABLET.SA PO SCH (22:00)
[2019-05-07] MEDS ORDERED: ENOXAPARIN SODIUM INJ 40 MG/0.4 ML DISP.SYRIN SUBCUT ONE (22:30)
[2019-05-07 23:10] LABS: APPEARANCE,URINE SLIGHTLY-CLOUDY; BILIRUBIN,URINE NEGATIVE (NEGATIVE); COLOR,URINE YELLOW; GLUCOSE, URINE NEGATIVE (NEGATIVE); KETONES,URINE 80 mg/dL (NEGATIVE); LEUKOCYTE ESTERASE,URINE LARGE (NEGATIVE); NITRITE,URINE NEGATIVE (NEGATIVE); PROTEIN,URINE 30 mg/dL (NEGATIVE); URINE SPECIFIC GRAVITY 1.012; UROBILINOGEN,URINE NEGATIVE mg/dL (<2.0)
[2019-05-07] MEDS ORDERED: POTASSIUM CHLORIDE 10 MEQ CAPSULE.ER PO ONE (23:18)
--- NOTE | 2019-05-07 23:18 | PDOC H&P ---
History of Present Illness Admission Date/PCP: 05/07/19 20:40 Patient complains of: Shortness of breath History of Present Illness: ANTONIETTA MERINO is a 28 year old obese -[place] female with history of tobacco abuse who presented to the emergency room with acute onset of dyspnea with associated cough productive of brownish sputum without wheezing however with fever without chills. She admitted to watery diarrhea without melena or bright red bleeding per rectum. No dysuria, oliguria or hematuria or flank pain. Upon presentation to the emergency room blood pressure was 156/89 with a temperature of 103.8 and later 99.8 after Tylenol, pulse of 115 that was 130 earlier with a pulse oximetry of 94% on room air and respiratory rate 18. Labs revealed leukocytosis of 11.9 with neutrophilia and borderline potassium 3.5 with AST 57, total bili of 1.6 and total protein of 8.4. Lactic acid was 0.9. PA and lateral chest x-ray revealed left upper lobe consolidation concerning for pneumonia. Blood cultures were drawn. The patient was given IV Rocephin and Zithromax as well as DuoNeb's and 975 mg p.o. Tylenol in addition to hydration with IV normal saline with a liter bolus as well as 2 L boluses of IV lactated Ringer. She will be admitted to a medically monitored bed for further evaluation and management. Past Medical History Pulmonary Medical History: Reports: Pneumonia Denies: Asthma Endocrine Medical History: Denies: Diabetes Mellitus Type 1 Past Surgical History Past Surgical History: Reports: None Social History Smoking Status: Current Every Day Smoker - Half a pack of cigarettes per day Family History Family History: DM, Hypertension, Other - CHF Parental Family History Reviewed: Yes Children Family History Reviewed: Yes Sibling(s) Family History Reviewed.: Yes Medication/Allergy Home Medications: Omeprazole 40 mg PO DAILY #30 capsule. 11/18/16 Docusate Sodium 100 mg PO DAILY #30 capsule 11/04/17 Hydrocortisone Acetate 25 mg RC BID #28 supp.rect 11/04/17 Hydrocortisone Acetate 28.4 gm TP BID #2 cream..g. 11/04/17 Polyethylene Glycol 3350 [Miralax] 17 gm PO DAILY #1 powder 11/04/17 Omeprazole 20 mg PO DAILY #30 tablet. 11/19/17 Sucralfate [Carafate] 1 gm PO QID PRN #420 ml 11/19/17 Cephalexin Monohydrate [Keflex 500 mg Capsule] 500 mg PO BID 7 Days #14 capsule 11/08/18 Allergies/Adverse Reactions: No Known Allergies Allergy (Verified 05/07/19 14:30) Review of Systems Review of Systems: As per history of present illness. All pertinent systems were reviewed above. Constitutional, HEENT, cardiovascular, respiratory, GI, , musculoskeletal, neuro, psychiatric, endocrine, integumentary and hematologic systems were rev iewed and are otherwise negative/unremarkable except for positive findings mentioned above in the HPI. Physical Exam Vital Signs: Temp Pulse Resp BP Pulse Ox 99.8 F 115 H 20 150/81 H 93 05/07/19 20:11 05/07/19 20:11 05/07/19 20:11 05/07/19 20:11 05/07/19 20:11 Intake & Output 05/06/19 05/07/19 05/08/19 06:59 06:59 06:59 Intake Total 2049 Balance 2049 Weight 131 kg Exam: Generally: Ill-looking, obese middle-aged -[place] female in mild respiratory distress with conversational dyspnea Vital signs-as listed Head - atraumatic, normocephalic. Pupils - equal, round and reactive to light and accommodation. Extraocular movements are intact. No scleral icterus. Oropharynx - moist mucous membranes and tongue. No pharyngeal erythema or exudate. Neck - supple. No JVD. Carotid pulses 2+ bilaterally. No carotid bruits. No palpable thyromegaly or lymphadenopathy. Cardiovascular - regular rate and rhythm. Normal S1 and S2. No murmurs, gallops or rubs. Lungs -diminished left upper lung zone breath sounds Abdomen - soft and nontender. Positive bowel sounds. No palpable organomegaly or masses. Extremities - no pitting edema, clubbing or cyanosis. Neuro - grossly non-focal. Skin - no rashes. Breast, pelvic and rectal - deferred Results Laboratory Results: 05/07/19 16:14 05/07/19 16:14 05/07/19 05/07/19 05/07/19 16:14 16:14 16:14 WBC 11.9 H RBC 5.21 Hgb 12.2 Hct 37.7 MCV 72 L MCH 23.5 L MCHC 32.5 RDW 14.5 H Plt Count 263 Seg Neutrophils % 76.5 Lymphocytes % 16.1 Monocytes % 6.7 Eosinophils % 0.0 Basophils % 0.7 Absolute Neutrophils 9.1 H Absolute Lymphocytes 1.9 Absolute Monocytes 0.8 Absolute Eosinophils 0.0 Absolute Basophils 0.1 Sodium 135.9 L Potassium 3.5 L Chloride 101 Carbon Dioxide 24 Anion Gap 11 BUN 8 Creatinine 0.92 Est GFR ( Amer) > 60 Est GFR (Non-Af Amer) > 60 Glucose 101 Lactic Acid 0.9 Calcium 9.4 Total Bilirubin 1.6 H AST 57 H Alkaline Phosphatase 70 Total Protein 8.4 H Albumin 4.7 Impressions: Chest X-Ray 05/07/19 15:36 IMPRESSION: Left upper lobe consolidation. No pleural effusion. Assessment and Plan - Diagnosis (1) Community acquired pneumonia Qualifiers: Laterality: left Lung location: upper lobe of lung Qualified Code(s): J18.1 - Lobar pneumonia, unspecified organism Is this a current diagnosis for this admission?: Yes Plan: The patient will be admitted to a medically monitored bed for community-acquired pneumonia likely bacterial and will be placed on IV Levaquin. Mucolytic therapy be provided as well as duo nebs q.i.d. and q.4 hours p.r.n.. Sputum Gram stain culture and sensitivity will be obtained. Will follow Blood Cultures. (2) Sepsis Qualifiers: Sepsis type: sepsis due to unspecified organism Sepsis acute organ dysfunction status: without acute organ dysfunction Qualified Code(s): A41.9 - Sepsis, unspecified organism Is this a current diagnosis for this admission?: Yes Plan: Blood cultures were drawn. Will obtain sputum Gram stain culture and sens itivity and continue antibiotic therapy with IV Levaquin. (3) Elevated LFTs Is this a current diagnosis for this admission?: Yes Plan: We will follow LFTs after hydration. (4) Tobacco abuse Is this a current diagnosis for this admission?: Yes Plan: Smoking cessation was discussed with the patient and she will receive further counseling here. (5) DVT prophylaxis Is this a current diagnosis for this admission?: Yes Plan: Subcutaneous Lovenox - Time Time Spent with patient: 35 or more minutes Smoking Cessation Education: 3 to 10 minutes Medications reviewed and adjusted accordingly: Yes Anticipated discharge: Home Disposition: Admission to medically monitored bed - Inpatient Certification Based on my medical assessment, after consideration of the patient's comorbidities, presenting symptoms, or acuity I expect that the services needed warrant INPATIENT care.: Yes I certify that my determination is in accordance with my understanding of Medicare's requirements for reasonable and necessary INPATIENT services [42 CFR 412.3e].: Yes Medical Necessity: Need For IV Fluids, Need for IV Antibiotics Post Hospital Care: D/C or Transfer Summary - Plan Summary Plan Summary: The plan of care was discussed in details with the patient. I answered all questions. The patient agreed to proceed with the above-mentioned plan. The patient is presumably full code. This note was created by [employer] software and may contain typo errors that may have not been proofread.
[2019-05-08] MEDS: ACETAMINOPHEN 325 MG TABLET PO PRN (02:52)
[2019-05-08 05:13] LABS: ABSOLUTE LYMPHOCYTES (AUTO) 1.6 10^3/uL (0.5-4.7); ABSOLUTE MONOCYTES (AUTO) 0.8 10^3/uL (0.1-1.4); ABSOLUTE NEUT (AUTO) 6.9 10^3/uL (1.7-8.2); BASOPHILS % (AUTO) 0.3 % (0-2); EOSINOPHILS % (AUTO) 0.5 % (0-6); HEMATOCRIT 34.6 % (36.0-47.0); HEMOGLOBIN 11.2 g/dL (12.0-15.5); LYMPHOCYTES % (AUTO) 17.1 % (13-45); MEAN CORPUSCULAR HEMOGLOBIN 23.7 pg (27.0-33.4); MEAN CORPUSCULAR HGB CONC 32.5 g/dL (32.0-36.0); MEAN CORPUSCULAR VOLUME 73 fl (80-97); MONOCYTES % (AUTO) 8.9 % (3-13); PLATELET COUNT 239 10^3/uL (150-450); RED BLOOD COUNT 4.75 10^6/uL (3.72-5.28); RED CELL DISTRIBUTION WIDTH 14.7 % (11.5-14.0); SEGMENTED NEUTROPHILS % (AUTO) 73.2 % (42-78); TOTAL CELLS COUNTED % (AUTO) 100 %; WHITE BLOOD COUNT 9.4 10^3/uL (4.0-10.5)
[2019-05-08 05:42] LABS: ANION GAP 10 (5-19); BLOOD UREA NITROGEN 6 mg/dL (7-20); CALCIUM 8.8 mg/dL (8.4-10.2); CARBON DIOXIDE 24 mmol/L (22-30); CHLORIDE 103 mmol/L (98-107); GLUCOSE 106 mg/dL (75-110); POTASSIUM 3.5 mmol/L (3.6-5.0)
[2019-05-08] MEDS ORDERED: POTASSIUM CHLORIDE 10 MEQ CAPSULE.ER PO ONE (06:00)
[2019-05-08] MEDS: LEVOFLOXACIN 750 MG/D5W RTU 750 MG/150 ML RTUPB IV SCH (10:18)
[2019-05-08] MEDS: GUAIFENESIN 600 MG TABLET.SA PO SCH ×2 (10:18→21:32)
[2019-05-08] MEDS ORDERED: ALBUTEROL SULFATE 0.083% NEB 2.5 MG/3 ML AMPUL NEB PRN (15:52)
[2019-05-08] MEDS ORDERED: GUAIFENESIN SYRP 200 MG/10 ML UDC PO PRN (15:53)
--- NOTE | 2019-05-08 16:01 | PDOC PROGRESS REPORT ---
Subjective Progress Note for:: 05/08/19 Subjective:: The patient is a 28-year-old morbidly obese female with a past medical history significant only for tobacco dependence who was admitted 05/07/2019 for sepsis secondary to a left upper lobe community-acquired pneumonia. Patient was seen on morning rounds with family members present. She is found resting in bed comfortably on room air. She reports continued dyspnea with mild exertion and productive cough. She also endorses chest wall discomfort with deep inspiration and coughing. She denies fever, chills, palpitations, orthopnea, abdominal pain, nausea vomiting and diarrhea. She has no questions or concerns at this time. No concerns per nursing. Reason For Visit: PNEUOMONIA Physical Exam Vital Signs: Temp Pulse Resp BP Pulse Ox 99.1 F 95 16 143/83 H 98 05/08/19 08:22 05/08/19 08:22 05/08/19 08:22 05/08/19 08:22 05/08/19 12:00 Pulse Oximeter Continuous Start: 05/07/19 20:44 Freq: RTQ4 Status: Active Protocol: Document 05/08/19 12:00 [facility] (Rec: 05/08/19 13:13 [facility] [id number]) Pulse Oximetry Assessment Oxygen Saturation (92-100) 98 Oxygen Delivery Method Room Air Fraction of Inspired Oxygen (FIO2) 21 Equipment Usage Equipment in Use Continuous SpO2 Machine # 13 Intake & Output 05/07/19 05/08/19 05/09/19 06:59 06:59 06:59 Intake Total 2049 1510 Balance 2049 151 Weight 134 kg General appearance: PRESENT: no acute distress, cooperative, morbidly obese, well-developed, well-nourished Head exam: PRESENT: atraumatic, normocephalic Eye exam: PRESENT: conjunctiva pink, EOMI, PERRLA. ABSENT: scleral icterus Ear exam: PRESENT: normal external ear exam Mouth exam: PRESENT: moist, tongue midline Neck exam: ABSENT: carotid bruit, JVD, lymphadenopathy, thyromegaly Respiratory exam: PRESENT: rhonchi, symmetrical, unlabored. ABSENT: rales, wheezes Cardiovascular exam: PRESENT: RRR, +S1, +S2. ABSENT: diastolic murmur, rubs, systolic murmur Pulses: PRESENT: normal dorsalis pedis pul Vascular exam: PRESENT: normal capillary refill GI/Abdominal exam: PRESENT: normal bowel sounds, soft. ABSENT: distended, guarding, mass, organolmegaly, rebound, tenderness Rectal exam: PRESENT: deferred Extremities exam: PRESENT: full ROM. ABSENT: calf tenderness, clubbing, pedal edema Neurological exam: PRESENT: alert, awake, oriented to person, oriented to place, oriented to time, oriented to situation, CN II-XII grossly intact. ABSENT: motor sensory deficit Psychiatric exam: PRESENT: appropriate affect, normal mood. ABSENT: homicidal ideation, suicidal ideation Skin exam: PRESENT: dry, intact, warm. ABSENT: cyanosis, rash Results Laboratory Results: 05/08/19 04:45 05/08/19 04:45 05/07/19 05/07/19 05/07/19 16:14 16:14 16:14 WBC 11.9 H RBC 5.21 Hgb 12.2 Hct 37.7 MCV 72 L MCH 23.5 L MCHC 32.5 RDW 14.5 H Plt Count 263 Seg Neutrophils % 76.5 Lymphocytes % 16.1 Monocytes % 6.7 Eosinophils % 0.0 Basophils % 0.7 Absolute Neutrophils 9.1 H Absolute Lymphocytes 1.9 Absolute Monocytes 0.8 Absolute Eosinophils 0.0 Absolute Basophils 0.1 Sodium 135.9 L Potassium 3.5 L Chloride 101 Carbon Dioxide 24 Anion Gap 11 BUN 8 Creatinine 0.92 Est GFR ( Amer) > 60 Est GFR (Non-Af Amer) > 60 Glucose 101 Lactic Acid 0.9 Calcium 9.4 Total Bilirubin 1.6 H AST 57 H Alkaline Phosphatase 70 Total Protein 8.4 H Albumin 4.7 Urine Color Urine Appearance Urine pH Ur Specific [place] Urine Protein Urine Glucose (UA) Urine Ketones Urine Blood Urine Nitrite Ur Leukocyte Esterase Urine WBC (Auto) Urine RBC (Auto) 05/07/19 05/08/19 05/08/19 21:55 04:45 04:45 WBC 9.4 RBC 4.75 Hgb 11.2 L Hct 34.6 L MCV 73 L MCH 23.7 L MCHC 32.5 RDW 14.7 H Plt Count 239 Seg Neutrophils % 73.2 Lymphocytes % 17.1 Monocytes % 8.9 Eosinophils % 0.5 Basophils % 0.3 Absolute Neutrophils 6.9 Absolute Lymphocytes 1.6 Absolute Monocytes 0.8 Absolute Eosinophils 0.0 Absolute Basophils 0.0 Sodium 136.8 L Potassium 3.5 L Chloride 103 Carbon Dioxide 24 Anion Gap 10 BUN 6 L Creatinine 0.71 Est GFR ( Amer) > 60 Est GFR (Non-Af Amer) > 60 Glucose 106 Lactic Acid Calcium 8.8 Total Bilirubin AST Alkaline Phosphatase Total Protein Albumin Urine Color YELLOW Urine Appearance SLIGHTLY-CLOUDY Urine pH 6.0 Ur Specific [place] 1.012 Urine Protein 30 H Urine Glucose (UA) NEGATIVE Urine Ketones 80 H Urine Blood LARGE H Urine Nitrite NEGATIVE Ur Leukocyte Esterase LARGE H Urine WBC (Auto) 90 Urine RBC (Auto) 35 Impressions: Chest X-Ray 05/07/19 15:36 IMPRESSION: Left upper lobe consolidation. No pleural effusion. Assessment and Plan - Diagnosis (1) Community acquired pneumonia Qualifiers: Laterality: left Lung location: upper lobe of lung Qualified Code(s): J18.1 - Lobar pneumonia, unspecified organism Is this a current diagnosis for this admission?: Yes Plan: Chest x-ray reveals left upper lobe pneumonia without cavitation; reviewed with patient, no risk factors for TB exposure. Leukocytosis has resolved. T-max 103 overnight. Blood and sputum cultures pending. Patient is admitted to the medical floor on continuous cardiac telemetry. She is provided supplemental oxygen as needed to pain saturations. She is started on scheduled and as needed nebulizer treatments. She is empirically placed on IV Levaquin for treatment of community-acquired pneumonia; will adjust as cultures result. She is provided Mucinex twice daily. Robitussin and tramadol as needed for Cough/pleurisy. Pulmonary toilet encouraged; incentive spirometer to bedside. (2) Sepsis Qualifiers: Sepsis type: sepsis due to unspecified organism Sepsis acute organ dysfunction status: without acute organ dysfunction Qualified Code(s): A41.9 - Sepsis, unspecified organism Is this a current diagnosis for this admission?: Yes Plan: Sepsis, due to community-acquired pneumonia, present on admission, evidenced by fever, tachycardia, tachypnea, acute ill appearance, and leukocytosis. Blood cultures are pending. Sputum cultures ordered. She received 2 L IV fluid bolus while in the emergency department. We will continue maintenance IV fluids while admitted. Patient is empirically placed on IV Levaquin. Will adjust as cultures result. (3) Elevated LFTs Is this a current diagnosis for this admission?: Yes Plan: We will follow LFTs after hydration. (4) Tobacco abuse Is this a current diagnosis for this admission?: Yes Plan: Smoking cessation encouraged; nicotine replacement therapies provided. (5) DVT prophylaxis Is this a current diagnosis for this admission?: Yes Plan: Subcutaneous Lovenox
--- NOTE | 2019-05-08 16:04 | Progress Note Acknowledgement ---
Progress Note Acknowledgement Progess Note Acknowledgement: I, the undersigned member of the medical staff with appropriate privileges and with supervisory authority over Sharla Newman, a [facility] practice allied health professional, acknowledge that I have reviewed the progress notes entered on this patient, and in my professional judgment believe that the assessment made and/or any care evidenced was appropriate
[2019-05-08] MEDS: IPRATROPIUM/ALBUTEROL 0.5-2.5 MG/3 ML AMPUL NEB SCH (17:05)
[2019-05-08] MEDS: ENOXAPARIN SODIUM INJ 40 MG/0.4 ML DISP.SYRIN SUBCUT SCH (21:33)
[2019-05-09] MEDS: IPRATROPIUM/ALBUTEROL 0.5-2.5 MG/3 ML AMPUL NEB SCH ×4 (00:41→23:29)
[2019-05-09] MEDS: TRAMADOL HCL 50 MG TABLET PO PRN ×2 (04:00→21:43)
[2019-05-09 04:46] LABS: ABSOLUTE EOSINOPHILS # (AUTO) 0.2 10^3/uL (0.0-0.6); ABSOLUTE LYMPHOCYTES (AUTO) 2.1 10^3/uL (0.5-4.7); ABSOLUTE MONOCYTES (AUTO) 0.7 10^3/uL (0.1-1.4); ABSOLUTE NEUT (AUTO) 4.2 10^3/uL (1.7-8.2); BASOPHILS % (AUTO) 0.4 % (0-2); HEMATOCRIT 32.7 % (36.0-47.0); HEMOGLOBIN 10.5 g/dL (12.0-15.5); LYMPHOCYTES % (AUTO) 28.9 % (13-45); MEAN CORPUSCULAR HEMOGLOBIN 23.5 pg (27.0-33.4); MEAN CORPUSCULAR VOLUME 73 fl (80-97); MONOCYTES % (AUTO) 9.4 % (3-13); PLATELET COUNT 258 10^3/uL (150-450); RED BLOOD COUNT 4.46 10^6/uL (3.72-5.28); RED CELL DISTRIBUTION WIDTH 14.8 % (11.5-14.0); SEGMENTED NEUTROPHILS % (AUTO) 58.3 % (42-78); TOTAL CELLS COUNTED % (AUTO) 100 %; WHITE BLOOD COUNT 7.2 10^3/uL (4.0-10.5)
[2019-05-09 05:01] LABS: ANION GAP 10 (5-19); BLOOD UREA NITROGEN 7 mg/dL (7-20); CALCIUM 8.8 mg/dL (8.4-10.2); CARBON DIOXIDE 24 mmol/L (22-30); CHLORIDE 103 mmol/L (98-107); GLUCOSE 86 mg/dL (75-110); POTASSIUM 3.8 mmol/L (3.6-5.0)
[2019-05-09] MEDS: GUAIFENESIN 600 MG TABLET.SA PO SCH ×2 (09:37→21:44)
[2019-05-09] MEDS: LEVOFLOXACIN 750 MG/D5W RTU 750 MG/150 ML RTUPB IV SCH (09:38)
[2019-05-09] MEDS: NICOTINE 14 MG/24 HR PATCH.TD24 TD SCH (09:42)
--- NOTE | 2019-05-09 15:25 | PDOC PROGRESS REPORT ---
Subjective Progress Note for:: 05/09/19 Subjective:: The patient is resting in bed. She complains of recurrent headache. She declined a nicotine patch earlier today. Her breathing feels more comfortable. She still tires easily. She reports that she is using her incentive spirometer. Reason For Visit: PNEUOMONIA Physical Exam Vital Signs: Temp Pulse Resp BP Pulse Ox 98.4 F 90 16 140/64 H 97 05/09/19 08:01 05/09/19 08:01 05/09/19 08:01 05/09/19 08:01 05/09/19 12:00 Pulse Oximeter Continuous Start: 05/07/19 20:44 Freq: RTQ4 Status: Active Protocol: Document 05/09/19 12:00 [facility] (Rec: 05/09/19 13:48 [facility] [id number]) Pulse Oximetry Assessment Oxygen Saturation (92-100) 97 Oxygen Delivery Method Room Air Fraction of Inspired Oxygen (FIO2) 21 Equipment Usage Equipment in Use Continuous SpO2 Machine # 13 Intake & Output 05/08/19 05/09/19 05/10/19 06:59 06:59 06:59 Intake Total 2049 1630 630 Balance 2049 163 630 Weight 134 kg 135.3 kg General appearance: PRESENT: no acute distress, cooperative, morbidly obese, well-developed Head exam: PRESENT: atraumatic, normocephalic Eye exam: PRESENT: conjunctiva pink. ABSENT: scleral icterus Ear exam: PRESENT: normal external ear exam Mouth exam: PRESENT: moist, tongue midline Respiratory exam: PRESENT: clear to auscultation michel, symmetrical, unlabored. ABSENT: rales, rhonchi, tachypnea, wheezes Cardiovascular exam: PRESENT: RRR, +S1, +S2. ABSENT: diastolic murmur, systolic murmur GI/Abdominal exam: PRESENT: distended - Protuberant abdomen, normal bowel sounds, soft. ABSENT: tenderness Rectal exam: PRESENT: deferred Neurological exam: PRESENT: alert, awake, oriented to person, oriented to place, oriented to time, oriented to situation, CN II-XII grossly intact Psychiatric exam: PRESENT: appropriate affect. ABSENT: agitated, anxious Focused psych exam: ABSENT: delusional, restlessness Results Laboratory Results: 05/09/19 03:55 05/09/19 03:55 05/09/19 05/09/19 03:55 03:55 WBC 7.2 RBC 4.46 Hgb 10.5 L Hct 32.7 L MCV 73 L MCH 23.5 L MCHC 32.0 RDW 14.8 H Plt Count 258 Seg Neutrophils % 58.3 Lymphocytes % 28.9 Monocytes % 9.4 Eosinophils % 3.0 Basophils % 0.4 Absolute Neutrophils 4.2 Absolute Lymphocytes 2.1 Absolute Monocytes 0.7 Absolute Eosinophils 0.2 Absolute Basophils 0.0 Sodium 137.2 Potassium 3.8 Chloride 103 Carbon Dioxide 24 Anion Gap 10 BUN 7 Creatinine 0.66 Est GFR ( Amer) > 60 Est GFR (Non-Af Amer) > 60 Glucose 86 Calcium 8.8 Impressions: Chest X-Ray 05/07/19 15:36 IMPRESSION: Left upper lobe consolidation. No pleural effusion. Assessment and Plan - Diagnosis (1) Community acquired pneumonia Qualifiers: Laterality: left Lung location: upper lobe of lung Qualified Code(s): J18.1 - Lobar pneumonia, unspecified organism Is this a current diagnosis for this admission?: Yes Plan: 05/09/2019-the patient's white blood cell count is normal. She still has a degree of pleuritic chest pain. I reassured her that this would fade over time. She also reports feeling tired and short of breath. Again I explained to her that this will improve over time. I also strongly encouraged her to stop using vape as this is just as bad as smoking cigarettes. Her mother reinforced this message. Our plan is to discharge home tomorrow on oral antibiotics to complete her therapy. (2) Sepsis Qualifiers: Sepsis type: sepsis due to unspecified organism Sepsis acute organ dysfunction status: without acute organ dysfunction Qualified Code(s): A41.9 - Sepsis, unspecified organism Is this a current diagnosis for this admission?: Yes Plan: 05/09/2019-the sepsis was secondary to pneumonia. Criteria met due to hypoxia, increased work of breathing, tachycardia and elevated bilirubin. The patient received 2 L of fluid in the emergency department. Her vital signs are stable. She is now on room air. Sepsis has resolved. (3) Elevated LFTs Is this a current diagnosis for this admission?: Yes Plan: 05/09/2019-slowly resolving. Abnormal LFTs secondary to sepsis. (4) Tobacco abuse Is this a current diagnosis for this admission?: Yes Plan: 05/09/2019-I discussed the fact that vape is just as bad as smoking cigarettes. I strongly encouraged her to stop smoking. Family reinforced this. The patient does concede that she needs to stop. I also encouraged her to try the nicotine patch that is available for her. (5) Morbid obesity Is this a current diagnosis for this admission?: Yes Plan: 05/09/2019-the patient's BMI is 45.4. She would benefit from weight loss. Initially with diet and then incorporating an exercise program. - Time Time Spent with patient: 15-24 minutes Smoking Cessation Education: 3 to 10 minutes Medications reviewed and adjusted accordingly: Yes Anticipated discharge: Home Within: within 24 hours
[2019-05-09] MEDS: ENOXAPARIN SODIUM INJ 40 MG/0.4 ML DISP.SYRIN SUBCUT SCH (21:44)
[2019-05-10] MEDS: ACETAMINOPHEN 325 MG TABLET PO PRN (04:25)
[2019-05-10 05:51] LABS: ANION GAP 12 (5-19); BLOOD UREA NITROGEN 5 mg/dL (7-20); CALCIUM 8.8 mg/dL (8.4-10.2); CARBON DIOXIDE 23 mmol/L (22-30); CHLORIDE 103 mmol/L (98-107); GLUCOSE 86 mg/dL (75-110); POTASSIUM 3.4 mmol/L (3.6-5.0)
[2019-05-10 05:54] LABS: ABSOLUTE EOSINOPHILS # (AUTO) 0.3 10^3/uL (0.0-0.6); ABSOLUTE LYMPHOCYTES (AUTO) 1.8 10^3/uL (0.5-4.7); ABSOLUTE MONOCYTES (AUTO) 0.5 10^3/uL (0.1-1.4); BASOPHILS % (AUTO) 0.2 % (0-2); EOSINOPHILS % (AUTO) 4.9 % (0-6); HEMATOCRIT 31.2 % (36.0-47.0); HEMOGLOBIN 10.2 g/dL (12.0-15.5); LYMPHOCYTES % (AUTO) 27.5 % (13-45); MEAN CORPUSCULAR HEMOGLOBIN 23.9 pg (27.0-33.4); MEAN CORPUSCULAR HGB CONC 32.6 g/dL (32.0-36.0); MEAN CORPUSCULAR VOLUME 73 fl (80-97); MONOCYTES % (AUTO) 6.8 % (3-13); PLATELET COUNT 293 10^3/uL (150-450); RED BLOOD COUNT 4.26 10^6/uL (3.72-5.28); RED CELL DISTRIBUTION WIDTH 14.6 % (11.5-14.0); SEGMENTED NEUTROPHILS % (AUTO) 60.6 % (42-78); TOTAL CELLS COUNTED % (AUTO) 100 %; WHITE BLOOD COUNT 6.7 10^3/uL (4.0-10.5)
[2019-05-10] MEDS: IPRATROPIUM/ALBUTEROL 0.5-2.5 MG/3 ML AMPUL NEB SCH (07:39)
--- NOTE | 2019-05-10 08:58 | PDOC DISCHARGE SUMMARY ---
General - Admit/Disc Date/PCP Admission Date/Primary Care Provider: 05/07/19 20:40 Discharge Date: 05/10/19 - Discharge Diagnosis (1) Community acquired pneumonia Is this a current diagnosis for this admission?: Yes Summary: The patient was diagnosed with a left upper lobe pneumonia. She was placed on antibiotic therapy and her white blood cell count normalized. Her sepsis reso lved. She will continue completion of antibiotic therapy on levofloxacin 750 mg daily as an outpatient. She did report that she felt she was beginning to get a yeast infection and so a single dose of IV fluconazole was prescribed as an outpatient. (2) Sepsis Is this a current diagnosis for this admission?: Yes Summary: Condition on admission met sepsis criteria as documented in yesterday's progress note. Sepsis resolved by the second day of hospitalization with antibiotics and fluids.. (3) Elevated LFTs Is this a current diagnosis for this admission?: Yes Summary: Increased LFTs secondary to sepsis. Will resolve over time. Would recheck blood work [facility]. (4) Tobacco abuse Is this a current diagnosis for this admission?: Yes Summary: The patient had changed from cigarettes to vape. I explained to her that this is just as bad as cigarettes. Strongly encouraged her to discontinue all forms of nicotine. Her mother was strongly encouraging of that plan. Hopefully the patient will adhere to tobacco cessation. (5) Morbid obesity Is this a current diagnosis for this admission?: Yes Summary: BMI is 45.4. The patient is feeling better she should engage in aggressive ting and institute a regular exercise program. - Additional Information Resuscitation Status: Full Code Discharge Diet: As Tolerated, Other (Comments) - Oranges and bananas to supplement potassium Discharge Activity: Activity As Tolerated, Other - Return to work on May 15 Prescriptions: Fluconazole [Diflucan] 150 mg PO ONCE PRN #1 tablet PRN Reason: Fluconazole [Diflucan] 150 mg PO ONCE #1 tablet Levofloxacin [Levaquin 750 mg Tablet] 750 mg PO DAILY 5 Days #5 tablet Levofloxacin [Levaquin 750 mg Tablet] 750 mg PO DAILY 7 Days #7 tab Home Medications: Fluconazole [Diflucan] 150 mg PO ONCE #1 tablet 05/10/19 Fluconazole [Diflucan] 150 mg PO ONCE PRN #1 tablet 05/10/19 Guaifenesin [Mucinex Sr 600 mg Tablet.sa] 600 mg PO Q12 tablet.sa 05/10/19 Guaifenesin [Robitussin Syrup 200 mg/10 ml Ud Cup] 200 mg PO QIDP PRN udc 05/10/19 Levofloxacin [Levaquin 750 mg Tablet] 750 mg PO DAILY 5 Days #5 tablet 05/10/19 Levofloxacin [Levaquin 750 mg Tablet] 750 mg PO DAILY 7 Days #7 tab 05/10/19 Nicotine [Nicoderm 14 mg/24 Hr Transdermal Patch] 1 each TD DAILY patch.[id number] 05/10/19 History of Present Illness Patient complains of: Shortness of breath History of Present Illness: ANTONIETTA MERINO is a 28 year old female presented to the hospital after acute onset of shortness of breath associated with a productive cough and fever. She also reported watery diarrhea without evidence of blood. Upon initial evaluation she was hypertensive with a fever. Temperature was 103.8. She was also tachycardic and exhibited acute liver injury. Chest x-ray revealed left upper lobe consolidation. Patient was started on IV antibiotics and referred to the hospitalist service for admission. Hospital Course Hospital Course: The patient had an unremarkable hospital course. She did note some pleuritic chest pain likely from coughing. She had some headaches which were likely due to nicotine withdrawal. A patch was offered but she did decline. She still reports some cough but it is greatly improved. Her exercise capacity is dec reased and when she coughs she does occasionally get short of breath. Her serum potassium is also marginal during her hospitalization. I told her to continue using her inspirometer. Slowly increase her activity. She should be able to return to work by Wednesday. I suggested several servings of oranges/orange juice or bananas each week and this should correct potassium. Physical Exam Vital Signs: Temp Pulse Resp BP Pulse Ox 98.4 F 78 15 137/71 H 99 05/10/19 01:10 05/10/19 07:39 05/10/19 07:39 05/10/19 01:10 05/10/19 07:42 Pulse Oximeter Continuous Start: 05/07/19 20:44 Freq: RTQ4 Status: Complete Protocol: Document 05/10/19 07:42 [facility] (Rec: 05/10/19 07:42 [facility] [id number]) Pulse Oximetry Assessment Oxygen Saturation (92-100) 99 Oxygen Delivery Method Room Air Fraction of Inspired Oxygen (FIO2) 21 Equipment Usage Equipment in Use Continuous SpO2 Machine # 13 Intake & Output 05/09/19 05/10/19 05/11/19 06:59 06:59 06:59 Intake Total 1630 2688 Balance 1630 2688 Weight 135.3 kg 135.5 kg General appearance: PRESENT: no acute distress, cooperative, morbidly obese, well-developed Head exam: PRESENT: atraumatic, normocephalic Ear exam: PRESENT: normal external ear exam. ABSENT: bleeding, drainage Mouth exam: PRESENT: moist, neck supple, tongue midline Teeth exam: ABSENT: dental tenderness, poor dentation Respiratory exam: PRESENT: clear to auscultation michel, symmetrical, unlabored. ABSENT: rales, rhonchi, tachypnea, wheezes Cardiovascular exam: PRESENT: RRR, +S1, +S2 GI/Abdominal exam: PRESENT: normal bowel sounds, soft, other - Pendulous abdomen. ABSENT: tenderness Rectal exam: PRESENT: deferred Gentrourinary exam: ABSENT: indwelling catheter Extremities exam: PRESENT: full ROM. ABSENT: joint swelling, pedal edema Musculoskeletal exam: PRESENT: ambulatory, normal inspection Neurological exam: PRESENT: alert, awake, oriented to person, oriented to place, oriented to time, oriented to situation, CN II-XII grossly intact. ABSENT: motor sensory deficit Psychiatric exam: PRESENT: appropriate affect, normal mood. ABSENT: agitated, anxious, unusual affect Focused psych exam: ABSENT: delusional, restlessness Skin exam: PRESENT: dry, normal color, warm, other - Very dry skin especially on feet. ABSENT: rash Results Laboratory Results: 05/10/19 04:22 05/10/19 04:22 05/10/19 05/10/19 04:22 04:22 WBC 6.7 RBC 4.26 Hgb 10.2 L Hct 31.2 L MCV 73 L MCH 23.9 L MCHC 32.6 RDW 14.6 H Plt Count 293 Seg Neutrophils % 60.6 Lymphocytes % 27.5 Monocytes % 6.8 Eosinophils % 4.9 Basophils % 0.2 Absolute Neutrophils 4.0 Absolute Lymphocytes 1.8 Absolute Monocytes 0.5 Absolute Eosinophils 0.3 Absolute Basophils 0.0 Sodium 138.1 Potassium 3.4 L Chloride 103 Carbon Dioxide 23 Anion Gap 12 BUN 5 L Creatinine 0.61 Est GFR ( Amer) > 60 Est GFR (Non-Af Amer) > 60 Glucose 86 Calcium 8.8 Impressions: Chest X-Ray 05/07/19 15:36 IMPRESSION: Left upper lobe consolidation. No pleural effusion. Qualifiers - * PATIENT BEING DISCHARGED WITH ANY OF THE FOLLOWING DIAGNOSIS: No Acute Heart Failure - Is this a Heart Failure Patient?: No Plan Discharge Plan: Discharge to home. Complete outpatient antibiotic therapy. Fluconazole for probable yeast infection. [facility] Time Spent: Greater than 30 Minutes
[2019-05-10] MEDS: NICOTINE 14 MG/24 HR PATCH.TD24 TD SCH (09:53)
[2019-05-10] MEDS: GUAIFENESIN 600 MG TABLET.SA PO SCH (09:56)
[2019-05-10] MEDS ORDERED: LEVOFLOXACIN 750 MG TABLET PO SCH (10:00)
[2019-05-10 10:41] VITALS: BP 137/71
== END 2019-05-10 11:16 | disposition home or self-care (01) | DRG 194 ==
LOC: ER 14:29 → EH 20:40 → 5 23:32
PROVIDERS: ADMIT Family Medicine; ATTEND Family Medicine
DX: J18.9 Pneumonia, unspecified organism (principal); Z68.42 Body mass index [BMI] 45.0-49.9, adult; E66.01 Morbid (severe) obesity due to excess calories; F17.290 Nicotine dependence, other tobacco product, uncomplicated; F17.210 Nicotine dependence, cigarettes, uncomplicated
CPT/HCPCS: 36415; 71046; 80048; 80053; 81001; 81025; 83605; 85025; 87040; 94640; 94762; 94799; 96361; 96365; 96366; 96367; 99285; J0456; J0696; J1650; J1956; J7030; J7120; J7620

== ENCOUNTER → 2020-04-02 | Outpatient (CLI) | payer SELFPAY ==
[2020-04-02 15:11] VITALS: BP 118/59
--- NOTE | 2020-04-02 15:11 | ER RDC ASSESSMENT REPORT ---
Intake - In the Last 14 days Have you traveled outside [place]?: No Have you been in close contact with someone CONFIRMED: Yes Worked in Healthcare?: No - Symptoms Subjective Fever([place] feverish): No Chills: No Muscule Aches: No Runny Nose: No Sore Throat: No Cough (New or worsening chronic cough): No Shortness of breath: No Nausea or Vomiting: No Headache: No Abdominal Pain: No Diarrhea(3 or more loose stools in last 24 hours): No - Do you have any of the following Chronic lung disease: Asthma or emphysema or COPD: No Cystic Fibrosis: No Diabetes: No High Blood Pressure: No Cardiovascular Disease: No Chronic Kidney Disease: No Chronic Liver Disease: No Chronic blood disorder like Sickle Cell Disease: No Weak immune system due to disease or medication: No Neurologic condition that limits movement: No Developmental delay - Moderate to Severe: No Recent (within past 2 weeks) or current : No Morbid Obesity (>100 pounds over ideal weight): No Obesity Comment: Height 5' 8" weight 198 pounds - Objective Temperature: 98.5 F Pulse Rate: 65 Respiratory Rate: 20 Blood Pressure: 118/59 O2 Sat by Pulse Oximetry: 98 Objective: Given above, testing performed: If Testing Performed: Test Specimen Type Sent to General - General Information source: Patient Notes: Patient here for [facility] COVID testing. Patient reports was exposed to somebody known positive on March 24 has not been symptomatic. - Related Data Allergies/Adverse Reactions: No Known Allergies Allergy (Verified 05/07/19 14:30) Past Medical History - General Information source: Patient - Social History Smoking Status: Current Every Day Smoker Cigarette use (# per day): Yes - Half a pack a day Smoking Education Provided: Yes - With smoking Family History: DM, Hypertension, Other - CHF Pulmonary Medical History: Reports: Hx Pneumonia Denies: Hx Asthma Endocrine Medical History: Denies: Hx Diabetes Mellitus Type 1 Renal/ Medical History: Denies: Hx Peritoneal Dialysis Physical Exam - General General appearance: Appears well, Alert In distress: None Notes: PHYSICAL EXAMINATION: GENERAL: Well-appearing and in no acute distress. HEAD: Atraumatic, normocephalic. EYES: sclera anicteric, conjunctiva are normal. ENT: nares patent. Moist mucous membranes. NECK: Normal range of motion, supple without lymphadenopathy LUNGS: CTAB and equal. No wheezes rales or rhonchi. Resp even and unlabored. Lung sounds clear. HEART: Regular rate and rhythm without murmurs ABDOMEN: Soft, nontender, normal bowel sounds, no guarding. EXTREMITIES: No cyanosis. NEUROLOGICAL: Normal speech. PSYCH: Normal mood, normal affect. SKIN: Warm, Dry, normal turgor, Diagnostic Results Laboratory Results: Cover testing results. Provided instructions regarding COVID to include: As a person under investigation for Covid 19, the [facility] of Health and Human Services, division of public health advises you to adhere to the following guidance until your test results are reported to you. If your test result is positive, you will receive additional information from your provider and your local health department at that time. Remain at home until you are cleared by the health provider or public health authorities. Keep a log of visitors to your home, notify any visitors to your home of your isolation status. If you plan to move to a new address or leave the formerly [facility], notify the local health department in your [facility]. Call your doctor or seek care if you have an urgent medical need. Before seeking medical care, call ahead to get instructions from the provider before arriving at the medical office clinic or hospital. Notify them that you are being tested for the virus that causes Covid 19 so that arrangements can be made, as necessary, to prevent transmission to others in the healthcare setting. Next, notify the local health department in your formerly [facility]. If a medical emergency arises and you need to call 911, inform the first responders that you are being tested for the virus that causes Covid 19. Next, notify the local health department in your formerly [facility]. Patient Education/Counseling Counseling/Education: Patient presents with upper respiratory symptoms worrisome for possible Covid 19. Patient does not have emergency worring symptoms such as difficulty breathing, shortness of breath, chest pain, pressure, confusion or cyanosis. Patient appears suitable for discharge. Instructed to follow-up in urgent care or to ED for any symptoms. patient's vital signs are stable and patient is nontoxic in appearance. Good return precautions have been discussed with patient, patient verbalized understanding and is agreeable with discharge plan of care at this time. [facility] Discharge - Discharge Clinical Impression: COVID - 19 SCREENING Condition: Stable Disposition: Home; Selfcare
== END ==
LOC: RDC 13:31
PROVIDERS: ATTEND Nurse Practitioner Family
DX: Z20.828 Contact with and (suspected) exposure to other viral communicable diseases (principal); F17.210 Nicotine dependence, cigarettes, uncomplicated; Z87.01 Personal history of pneumonia (recurrent)
CPT/HCPCS: 87635; C9803; 99201; 99211